=== PATIENT | female | born 1955 | race Caucasian/White ===

== ENCOUNTER 2020-06-02 12:58 | Outpatient (RCR) | payer MEDICARE, OTHER ==
[2020-04-04 11:31] LABS: BASOPHILS # (AUTO) 0.1 10^3/uL (0.0-0.1); BASOPHILS % (AUTO) 1 % (0-10); EOSINOPHILS # (AUTO) 0.4 10^3/uL (0.0-0.3); EOSINOPHILS % (AUTO) 5 % (0-10); HEMATOCRIT 43 % (35-52); HEMOGLOBIN 13.7 g/dL (11.5-16.0); LYMPHOCYTES # (AUTO) 3.1 10^3/uL (1.0-4.0); LYMPHOCYTES % (AUTO) 33 % (12-44); MEAN CORPUSCULAR HEMOGLOBIN 28 pg (25-34); MEAN CORPUSCULAR HGB CONC 32 g/dL (32-36); MEAN CORPUSCULAR VOLUME 87 fL (80-99); MEAN PLATELET VOLUME 10.6 fL (9.0-12.2); MONOCYTES # (AUTO) 0.7 10^3/uL (0.0-1.0); MONOCYTES % (AUTO) 7 % (0-12); NEUTROPHILS % (AUTO) 54 % (42-75); PLATELET COUNT 319 10^3/uL (130-400); WHITE BLOOD COUNT 9.3 10^3/uL (4.3-11.0)
[2020-04-04 11:51] LABS: ALANINE AMINOTRANSFERASE 26 U/L (0-55); ALBUMIN 4.1 GM/DL (3.2-4.5); ALKALINE PHOSPHATASE 88 U/L (40-136); BILIRUBIN,TOTAL 0.2 MG/DL (0.1-1.0); BUN/CREATININE RATIO 24; CALCIUM 9.1 MG/DL (8.5-10.1); CARBON DIOXIDE 25 MMOL/L (21-32); CHLORIDE 107 MMOL/L (98-107); CREATININE SERUM 0.79 MG/DL (0.60-1.30); GFR ESTIMATED > 60; GLUCOSE 96 MG/DL (70-105); POTASSIUM 4.6 MMOL/L (3.6-5.0); SODIUM 141 MMOL/L (135-145); TOTAL PROTEIN 7.2 GM/DL (6.4-8.2)
== END 2020-07-03 | disposition home or self-care (01) ==
LOC: ONC 12:58
PROVIDERS: ATTEND Internal Medicine Hematology & Oncology
DX: C50.519 Malignant neoplasm of lower-outer quadrant of unspecified female breast (principal); D63.0 Anemia in neoplastic disease; M19.90 Unspecified osteoarthritis, unspecified site; Z98.84 Bariatric surgery status; Z98.890 Other specified postprocedural states; Z86.39 Personal history of other endocrine, nutritional and metabolic disease; Z78.0 Asymptomatic menopausal state
CPT/HCPCS: 80053; 84443; 85025; G0463; 77290; 77295; 77300; 77307; 77334; 77336; 77417; 99204; 99214

== ENCOUNTER 2020-07-14 13:23 | Outpatient (RCR) | payer MEDICARE, OTHER | END 2020-10-12 | disposition home or self-care (01) | LOC: ONC 13:23 | PROVIDERS: ATTEND Internal Medicine Hematology & Oncology | DX: C50.519 Malignant neoplasm of lower-outer quadrant of unspecified female breast (principal); D63.0 Anemia in neoplastic disease; M19.90 Unspecified osteoarthritis, unspecified site; Z98.84 Bariatric surgery status; Z98.890 Other specified postprocedural states; Z86.39 Personal history of other endocrine, nutritional and metabolic disease; Z78.0 Asymptomatic menopausal state | CPT/HCPCS: 99213 ==

== ENCOUNTER 2021-08-01 18:35 | Emergency (ER) | payer MEDICARE, OTHER ==
[~2021-08-01] VITALS: Ht 165.1 cm; Wt 90.8 kg
--- NOTE | 2021-08-01 20:25 | Diagnostic Imaging Report ---
INDICATION: Congestion. No prior examinations are available for comparison. FINDINGS: The heart size, mediastinal configuration, and pulmonary vascularity are within normal limits. There is no pleural effusion, pneumothorax, or pneumonia. The osseous structures are unremarkable. IMPRESSION: No acute cardiopulmonary abnormality. Dictated by: Dictated on workstation # [id number]
--- NOTE | 2021-08-01 20:47 | ED Cough/URI ---
General Chief Complaint: Cough/Cold/Flu Symptoms Stated Complaint: COUGH, CONGESTION Nursing Triage Note: PATIENT STATES THAT OVER THE PAST WEEK AND A HALF SHE HAS BEEN EXPERIENCING COUGHING AND OCC. WHEEZING. INITIALLY SHE HAD BEEN CLEANING OUT A HOUSE THAT WAS KNOWN TO HAVE MOLD, SO SHE THOUGHT THAT WAS THE CAUSE. SINCE THEN IT HAS CONTINUED TO GET WORSE AND INCREASED FATIGUE. History of Present Illness Date Seen by Provider: Aug 01, 2021 Time Seen by Provider: 18:42 Initial Comments 66-year-old female with no pertinent PMH is here with complaints of congestion, mild intermittent wheezing, cough for the past 5 days which has been worsening. The trigger has been cleaning her father's house which has mold in it. Denies history of asthma or COPD, denies smoking, chest pain, shortness of breath, headache, sneezing. Patient has not had fever. No sick contacts known Allergies and Home Medications Allergies Coded Allergies: No Known Drug Allergies (Unverified , 08/01/21) Patient Home Medication List Home Medication List Reviewed: Yes Review of Systems Review of Systems Constitutional: no symptoms reported EENTM: nose congestion Respiratory: cough, phlegm, wheezing Cardiovascular: no symptoms reported Gastrointestinal: no symptoms reported Genitourinary: no symptoms reported Musculoskeletal: no symptoms reported Skin: no symptoms reported Psychiatric/Neurological: No Symptoms Reported Hematologic/Lymphatic: No Symptoms Reported Immunological/Allergic: no symptoms reported Physical Exam Vital Signs - First Documented 08/01/21 19:14 Temp 35.7 Pulse 81 Resp 20 B/P (MAP) 145/99 (114) Pulse Ox 98 O2 Delivery Room Air Capillary Refill : Less Than 3 Seconds Height: '" Weight: lbs. oz. kg; 33.00 BMI Method: General Appearance: WD/WN, no apparent distress HEENT: PERRL/EOMI, normal ENT inspection, TMs normal, pharynx normal Neck: non-tender, full range of motion Respiratory: chest non-tender, lungs clear, normal breath sounds, no respiratory distress, no accessory muscle use Cardiovascular: regular rate, rhythm, no edema Gastrointestinal: normal bowel sounds, non tender, soft Neurologic/Psychiatric: no motor/sensory deficits, alert, normal mood/affect, oriented x 3 Skin: normal color Progress/Results/Core Measures Suspected Sepsis SIRS Temperature: Pulse: 81 Respiratory Rate: 20 Blood Pressure 145 /99 Mean: 114 Results/Orders Lab Results Laboratory Tests Test 08/01/21 19:22 Range/Units Influenza Type A (RT-PCR) Not Detected Not Detecte Influenza Type B (RT-PCR) Not Detected Not Detecte SARS-CoV-2 RNA (RT-PCR) Not Detected Not Detecte My Orders Orders - DONELL DANIELS MD Chest 1 View, Ap/Pa Only (08/01/21 19:22) Covid 19 Inhouse Test (08/01/21 19:22) Influenza A And B By Pcr (08/01/21 19:22) Vital Signs/I&O 08/01/21 19:14 Temp 35.7 Pulse 81 Resp 20 B/P (MAP) 145/99 (114) Pulse Ox 98 O2 Delivery Room Air Capillary Refill : Less Than 3 Seconds Blood Pressure Mean: 114 Progress Note : Progress Note 1. URI/ ALLERGIC BRONCHIOLITIS: - Rapid COVID and Rapid Flu: negative - CXR: normal - Albuterol inhaler - Prednisone taper for 2 more days - Duo neb STAT & Prednisone 60mg STAT in ER - F/u with PCP -The patient was seen in the ED, and treated appropriately to presentation at a specific point in time. Patient is informed that there is a possibility that disease and illness can evolve and change in acuity rapidly or slowly after patient is discharged from the ER. Precautionary advice given to the patient for immediate return to ER if symptoms worsen or do not resolve, and to seek emergency care sooner rather than later. Pt also advised on the importance of P CP follow up and compliance with management and follow up plan. Pt verbally expressed understanding. Diagnostic Imaging Diagonstic Imaging: Xray Plain Films/CT/US/NM/MRI: chest Comments [facility]. [place], [place] NAME: JOSHUA NUNEZ [facility] REC#: [id number] PT STATUS: REG ER : 1955 PHYSICIAN: DONELL DANIELS MD ADMIT DATE: 08/01/21/ER Signed Date of Exam:08/01/21 CHEST 1 VIEW, AP/PA ONLY INDICATION: Congestion. No prior examinations are available for comparison. FINDINGS: The heart size, mediastinal configuration, and pulmonary vascularity are within normal limits. There is no pleural effusion, pneumothorax, or pneumonia. The osseous structures are unremarkable. IMPRESSION: No acute cardiopulmonary abnormality. Dictated by: Dictated on workstation # [id number] Dict: 08/01/212021 Trans: 08/01/212031 [facility] [id number] Interpreted by: MAL ROMAN MD Electronically signed by: MAL ROMAN MD 08/01/212031 Departure Impression Primary Impression: Allergic bronchitis Qualified Codes: J45.909 - Unspecified asthma, uncomplicated Additional Impressions: Mold exposure URI (upper respiratory infection) Qualified Codes: J06.9 - Acute upper respiratory infection, unspecified Disposition: HOME, SELF-CARE Condition: Stable Departure-Patient Inst. Referrals: ANASTASIIA FELDER (PCP) Primary Care Physician Patient Instructions: Inhalers, Upper Respiratory Infection ED Add. Discharge Instructions: - Albuterol inhaler prescription - Prednisone taper for 2 more days - F/u with PCP -The patient was seen in the ED, and treated appropriately to presentation at a specific point in time. Patient is informed that there is a possibility that disease and illness can evolve and change in acuity rapidly or slowly after patient is discharged from the ER. Precautionary advice given to the patient for immediate return to ER if symptoms worsen or do not resolve, and to seek emergency care sooner rather than later. Pt also advised on the importance of PCP follow up and compliance with management and follow up plan. Pt verbally expressed understanding. All discharge instructions reviewed with patient and/or family. Voiced understanding. Scripts Prednisone (Prednisone) 20 Mg Tab 60 MG PO DAILY for 2 Days, #2 TAB Prov: DONELL DANIELS MD 08/01/21 Albuterol Sulfate (VENTOLIN HFA) 1 Puff Puff 2 PUFF INH Q4H PRN for SHORTNESS OF BREATH for 14 Days, #1 EA 1 PUFF = 90 MCG Prov: DONELL DANIELS MD 08/01/21 DONELL DANIELS MD Aug 01, 2021 20:47
[2021-08-01] MEDS ORDERED: PRD20T PO (20:59)
[2021-08-01] MEDS ORDERED: RT-ALBUINH INH (20:59)
[2021-08-01] MEDS ORDERED: predniSONE 10 MG TAB PO ONE (21:00)
[2021-08-01] MEDS ORDERED: predniSONE 20 MG TAB PO ONE (21:00)
[2021-08-01] MEDS ORDERED: RT-IPRATROPIUM (ATROVENT) 0.5MG/2.5ML AMP IH ONE (21:00)
[2021-08-01 21:34] VITALS: BP 149/78
== END 2021-08-01 21:35 | disposition home or self-care (01) ==
LOC: EDUNIT# 18:35 → ER 18:40
DX: J45.909 Unspecified asthma, uncomplicated (principal); J06.9 Acute upper respiratory infection, unspecified; Z77.120 Contact with and (suspected) exposure to mold (toxic); Z20.822 Contact with and (suspected) exposure to COVID-19
CPT/HCPCS: 71045; 87636; 94640

== ENCOUNTER → 2021-09-13 | Outpatient (CLI) | payer MEDICARE, OTHER ==
[~2021-09-13] MED LIST: PRD20T PO; RT-ALBUINH INH
--- NOTE | 2021-09-13 09:23 | Diagnostic Imaging Report ---
INDICATION: Left lower quadrant pain. PROCEDURE: Ultrasound abdomen complete. TECHNIQUE: Multiple real-time grayscale images were obtained of the abdomen in various projections. COMPARISON: None. FINDINGS: The liver demonstrates heterogeneous and increased echogenicity throughout. There are no focal lesions. No intra or extrahepatic biliary dilatation is present. The common bile duct is nondilated and measures 0.2 cm. There is no evidence of cholelithiasis or gallbladder wall thickening or pericholecystic fluid. Sonographic Soto's sign is negative. The visualized portions of the head and proximal body of the pancreas are within normal limits. The distal body and tail are not well visualized due to overlying bowel gas. Both kidneys are normal in size and echogenicity. The cortical thickness and the corticomedullary differentiation is well maintained. The right kidney measures 9.7 cm. The left kidney measures 10.8 cm. There is no evidence of calculi, focal mass or hydronephrosis. The spleen is not enlarged. The visualized upper aorta and IVC are normal in course and caliber. There is no ascites in the upper abdomen. In the area of painful palpable lump in the left lower quadrant, there are multiple small cystic areas measuring up to 0.7 cm. No abnormal vascularity is seen within this area. IMPRESSION: 1. Multiple small cystic areas in the area of palpable painful lump in the left lower quadrant. Findings are nonspecific and could represent injection granulomas in the appropriate clinical setting. Consider CT of the abdomen and pelvis with contrast to further evaluate. 2. Hepatic steatosis. No focal hepatic lesions. No ascites. Dictated by: Dictated on workstation # [id number]
== END ==
LOC: RAD 08:00
PROVIDERS: ATTEND Nurse Practitioner
DX: K76.0 Fatty (change of) liver, not elsewhere classified (principal); R19.00 Intra-abdominal and pelvic swelling, mass and lump, unspecified site
CPT/HCPCS: 76700

== ENCOUNTER → 2021-09-20 | Outpatient (CLI) | payer MEDICARE, OTHER ==
[2021-09-20 10:24] LABS: CREATININE SERUM 0.99 MG/DL (0.60-1.30)
== END ==
LOC: LAB 09:53
PROVIDERS: ATTEND Nurse Practitioner
DX: R10.32 Left lower quadrant pain (principal)
CPT/HCPCS: 36415; 82565; 84520

== ENCOUNTER → 2021-09-20 | Outpatient (CLI) | payer MEDICARE, OTHER ==
[~2021-09-20] MED LIST changes: +CATHETER FLUSH 10 ML SYR IV PRN; +HOLD METFORMIN - RECEIVED CONTRAST 20 ML VIAL IV SCH; +IOHEXOL 350 MG/ML 100 ML (OMNIPAQUE 350) VIAL IV ONE; +NS 100 ML (IVPB) BAG IV ONE
[2021-09-20 10:24] LABS: CREATININE SERUM 0.99 MG/DL (0.60-1.30)
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
== END ==
LOC: RAD 09:53
PROVIDERS: ATTEND Nurse Practitioner
DX: R10.32 Left lower quadrant pain (principal)
CPT/HCPCS: 36415; 82565; 84520

== ENCOUNTER 2022-12-03 09:57 | Outpatient (RCR) | payer MEDICARE ==
[~2022-12-03 09:57] MED LIST changes: -CATHETER FLUSH 10 ML SYR IV PRN; -HOLD METFORMIN - RECEIVED CONTRAST 20 ML VIAL IV SCH; -IOHEXOL 350 MG/ML 100 ML (OMNIPAQUE 350) VIAL IV ONE; -NS 100 ML (IVPB) BAG IV ONE
== END 2022-12-13 | disposition home or self-care (01) ==
LOC: ONC 09:57
PROVIDERS: ATTEND Internal Medicine Hematology & Oncology
DX: C50.512 Malignant neoplasm of lower-outer quadrant of left female breast (principal); D64.9 Anemia, unspecified; Z90.12 Acquired absence of left breast and nipple
CPT/HCPCS: 99214

== ENCOUNTER 2022-12-31 10:23 | Outpatient (RCR) | payer MEDICARE | END 2023-01-12 | disposition home or self-care (01) | LOC: ONC 10:23 | PROVIDERS: ATTEND Internal Medicine Hematology & Oncology | DX: C50.512 Malignant neoplasm of lower-outer quadrant of left female breast (principal); D64.9 Anemia, unspecified; M19.90 Unspecified osteoarthritis, unspecified site; E03.9 Hypothyroidism, unspecified; Z98.890 Other specified postprocedural states; Z98.84 Bariatric surgery status; Z78.0 Asymptomatic menopausal state | CPT/HCPCS: 99214 ==

== ENCOUNTER → 2023-01-21 | Outpatient (CLI) | payer MEDICARE, OTHER ==
[~2023-01-21] MED LIST changes: +DIATRIZOATE MEGLUM/SODIUM 37% 120 ML (GASTROGRAFIN) PO ONE; +HOLD METFORMIN - RECEIVED CONTRAST 20 ML VIAL IV SCH; +IOHEXOL 350 MG/ML 100 ML (OMNIPAQUE 350) VIAL IV ONE; +NS 100 ML (IVPB) BAG IV ONE
--- NOTE | 2023-01-21 12:32 | Diagnostic Imaging Report ---
PROCEDURE: CT chest, abdomen, and pelvis without contrast. TECHNIQUE: Multiple contiguous axial images were obtained through the chest, abdomen, and pelvis without the use of intravenous contrast. Auto Exposure Controls were utilized during the CT exam to meet ALARA standards for radiation dose reduction. INDICATION: History of left breast cancer. COMPARISON: No prior dedicated chest CT. This is correlated, however, with and abdominal/pelvic CT of 09/22/2021. FINDINGS: CHEST: There is some post surgical scarring in the inferomedial aspect of the left breast with resolution of prior left breast fluid collection. There are clips in the left axilla with no axillary adenopathy. No suspicious chest wall finding. Internal mammary chains appear unremarkable. The nonenhanced study shows no findings of hilar or mediastinal lymphadenopathy. No suspicious pulmonary nodule. No edema or pneumonia. No effusion. ABDOMEN/PELVIS: There is prior gastric bypass without evidence for its complication. There is no bowel obstruction. The unopacified liver, spleen, adrenals, and pancreas are unremarkable. No gallstones. Oral contrast is partly absorbed and excreted by the unobstructed urinary tracts. The kidneys appear unremarkable. There is noninflamed sigmoid diverticulosis. The uterus, adnexa, and urinary bladder are unremarkable. No adnexal lesion. No abdominal/pelvic mesenteric or retroperitoneal adenopathy. No ascites. No acute or suspicious bony lesion. IMPRESSION: No findings of metastatic disease to the chest, abdomen, or pelvis. Dictated by: Dictated on workstation # [id number]
== END ==
LOC: RAD 08:12
PROVIDERS: ATTEND Internal Medicine Hematology & Oncology
DX: C50.919 Malignant neoplasm of unspecified site of unspecified female breast (principal)
CPT/HCPCS: 71250; 74176